=== PATIENT | female | born 1950 ===

== ENCOUNTER 2021-05-10 05:44 | Inpatient (IN) | payer OTHER ==
[~2021-05-10] VITALS: Ht 165.1 cm; Wt 63.5 kg
[2021-05-10] MEDS ORDERED: ASPirin 81 mg TAB PO ONE (07:45)
[2021-05-10 10:30] LABS: Basophils # (auto) 0.1 10 ^3/uL (0-0.2); Basophils % (auto) 0.9 % (0.0-2.0); Eosinophils # (auto) 0 10 ^3/uL (0-0.8); Eosinophils % (auto) 0.6 % (0.0-7.0); Hematocrit 42.3 % (36.0-46.0); Hemoglobin 14.4 g/dL (12.2-16.2); Lymphocytes # (auto) 1.4 10 ^3/uL (0.4-5.4); Lymphocytes % (auto) 25.1 % (10.0-50.0); Mean Corpuscular Hemoglobin 30.3 pg (28.0-32.0); Mean Corpuscular Hgb Conc. 34.1 g/dL (32.0-36.0); Mean Corpuscular Volume 88.8 fL (80.0-100.0); Monocytes # (auto) 0.5 10 ^3/uL (0-1.3); Monocytes % (auto) 8.3 % (0.0-12.0); Neutrophils # (auto) 3.5 10 ^3/uL (1.6-8.6); Neutrophils % (auto) 65.1 % (37.0-80.0); Nucleated Red Blood Cells % 0.1 %; Red Blood Cells 4.76 10^6/uL (4.0-5.20); Red Cell Distribution Width 14.6 % (11.8-14.3); White Blood Cell 5.4 10^3/uL (4.4-10.8)
[2021-05-10 10:47] LABS: Albumin 4.4 g/dL (3.4-5.0); Calcium 9.3 mg/dL (8.5-10.1); Potassium 3.8 mmol/L (3.5-5.1)
[2021-05-10 10:52] LABS: BUN/Creatinine Ratio 19.1; Bilirubin, Total 0.3 mg/dL (0.2-1.0)
[2021-05-10] MEDS ORDERED: ONDANSETRON HCL 4 MG/2 ML VIAL IV PRN (20:45)
[2021-05-10] MEDS ORDERED: cloNIDine HCL 0.1 MG TAB PO PRN (20:45)
[2021-05-10] MEDS ORDERED: ACETAMINOPHEN 325 MG TAB PO PRN (20:45)
[2021-05-10] MEDS ORDERED: NITROGLYCERIN 0.4 MG SL TAB SL PRN (20:45)
[2021-05-10] MEDS ORDERED: MORPHINE SULFATE INJECTION 2 MG/ML SYRG IV PRN (20:45)
[2021-05-10] MEDS ORDERED: TEMAZEPAM 15 MG CAP PO PRN (22:00)
[2021-05-11 00:35] VITALS: BP 157/77
[2021-05-11] MEDS: ATORVASTATIN 20 MG TAB PO SCH ×2 (00:35→22:13)
[2021-05-11 05:00] VITALS: BP 143/73
[2021-05-11 08:43] VITALS: BP 144/73
[2021-05-11 09:43] LABS: Basophils # (auto) 0 10 ^3/uL (0-0.2); Basophils % (auto) 0.8 % (0.0-2.0); Eosinophils # (auto) 0.2 10 ^3/uL (0-0.8); Eosinophils % (auto) 3.7 % (0.0-7.0); Hematocrit 37.9 % (36.0-46.0); Hemoglobin 13.3 g/dL (12.2-16.2); Lymphocytes # (auto) 1.1 10 ^3/uL (0.4-5.4); Lymphocytes % (auto) 24.9 % (10.0-50.0); Mean Corpuscular Hemoglobin 31.1 pg (28.0-32.0); Mean Corpuscular Hgb Conc. 35.1 g/dL (32.0-36.0); Mean Corpuscular Volume 88.6 fL (80.0-100.0); Monocytes # (auto) 0.3 10 ^3/uL (0-1.3); Monocytes % (auto) 7.5 % (0.0-12.0); Neutrophils # (auto) 2.8 10 ^3/uL (1.6-8.6); Neutrophils % (auto) 63.1 % (37.0-80.0); Nucleated Red Blood Cells % 0.1 %; Red Blood Cells 4.27 10^6/uL (4.0-5.20); Red Cell Distribution Width 14.6 % (11.8-14.3); White Blood Cell 4.5 10^3/uL (4.4-10.8)
[2021-05-11] MEDS ORDERED: PANTOPRAZOLE 40 MG TAB PO SCH (10:00)
[2021-05-11] MEDS ORDERED: ENOXAPARIN SOD 40 MG/0.4 ML SYRINGE SC SCH (10:00)
[2021-05-11] MEDS: ASPirin 81 mg TAB PO SCH (10:10)
[2021-05-11 10:27] LABS: Potassium 3.6 mmol/L (3.5-5.1)
[2021-05-11 10:29] LABS: BUN/Creatinine Ratio 19.4
[2021-05-11] MEDS ORDERED: METOPROLOL TARTRATE 25 MG TAB PO ONE (10:30)
[2021-05-11 11:57] VITALS: BP 138/8
[2021-05-11 16:44] VITALS: BP 142/81
[2021-05-11 18:18] LABS: Urine Bacteria NONE SEEN /hpf (None Seen); Urine Blood Negative /uL (Negative); Urine Hyaline Cast FEW /lpf (0 - 2); Urine Specific Gravity 1.014 (1.001-1.035); Urine WBC 1 /hpf (0 - 5)
[2021-05-11 22:00] VITALS: BP 129/57
[2021-05-11] MEDS: METOPROLOL TARTRATE 25 MG TAB PO SCH (22:14)
[2021-05-12 05:00] VITALS: BP 122/58
[2021-05-12] MEDS ORDERED: ADENOSINE 53 MG in GIVE UN-DILUTED 0 ML IV STA (07:52)
[2021-05-12 08:37] VITALS: BP 125/49
[2021-05-12] MEDS ORDERED: METO25TA36 PO (10:40)
[2021-05-12] MEDS: ASPirin 81 mg TAB PO SCH (11:44)
[2021-05-12] MEDS: METOPROLOL TARTRATE 25 MG TAB PO SCH (11:45)
[2021-05-12 13:00] VITALS: BP 138/80
[2021-05-12 17:09] VITALS: BP 128/71
== END 2021-05-12 19:07 | disposition home or self-care (01) | DRG 282 ==
LOC: ER 05:44 → EDBD 05:44 → TELE 20:41 → TELE-CENTR 23:30
PROVIDERS: ADMIT Nurse Practitioner; ATTEND Internal Medicine
DX: I21.4 Non-ST elevation (NSTEMI) myocardial infarction (principal); I25.110 Atherosclerotic heart disease of native coronary artery with unstable angina pectoris; E87.6 Hypokalemia; I10 Essential (primary) hypertension; I48.91 Unspecified atrial fibrillation; Z20.822 Contact with and (suspected) exposure to COVID-19
CPT/HCPCS: 36415; 71045; 78452; 80048; 80053; 81001; 83880; 84443; 84484; 85025; 87426; 93005; 93017; 93306; 99291; G0378; J0153